=== PATIENT | female | born 1945 | race Caucasian/White ===

== ENCOUNTER 2018-05-28 20:46 | Inpatient (IN) | payer OTHER, MEDICARE ==
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
[2018-05-28] MEDS ORDERED: IOPAMIDOL (ISOVUE-300) 100 ML BTL ONE (21:00)
[2018-05-28] MEDS ORDERED: HYDROmorphONE/DILAUDID 1 MG/ML INJ ONE (21:41)
[2018-05-28] MEDS ORDERED: HYDROmorphONE/DILAUDID 2 MG/ML INJ IVP ONE (21:43)
[2018-05-28] MEDS ORDERED: BUPIVACAINE 0.25% 270 ML in PUMP SET 1 EA NB SCH (23:30)
[2018-05-28] MEDS ORDERED: BUPIVACAINE 0.25% 10 ML SDV NB ONE (23:30)
[2018-05-28] MEDS ORDERED: ACETAMINOPHEN 325 MG TAB PO PRN (23:32)
[2018-05-28] MEDS ORDERED: ONDANSETRON 4 MG/2 ML VIAL IVP PRN (23:32)
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
[2018-05-28] MEDS ORDERED: fentaNYL 100 MCG/2 ML INJ ONE (23:41)
[2018-05-28] MEDS ORDERED: PHENYLEPHRINE 10 MG/ML SDV ONE (23:58)
[2018-05-29] MEDS ORDERED: PHENYLEPHRINE HCL 100 MCG/ML SYR ONE ×3 (00:02→00:10)
[2018-05-29] MEDS ORDERED: ePHEDrine SULFATE 25 MG/5 ML SYR ONE (00:02)
[2018-05-29] MEDS ORDERED: fentaNYL 100 MCG/2 ML INJ EP ONE (00:05)
[2018-05-29] MEDS ORDERED: NALOXONE HCL 0.4 MG/ML INJ IVP PRN (00:30)
[2018-05-29] MEDS ORDERED: diphenhydrAMINE 25 MG CAP PO PRN (00:30)
[2018-05-29] MEDS ORDERED: METOCLOPRAMIDE 10 MG/2 ML VIAL IVP PRN (00:30)
[2018-05-29] MEDS ORDERED: ONDANSETRON 4 MG/2 ML VIAL IVP PRN (00:30)
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
--- NOTE | 2018-05-29 00:45 | POSTANESTH ---
Post Anesthetic Evaluation Cardiovascular Status: Normal, Stable Respiratory Status: Similar to Pre-op Cond. Level of Consciousness/Mental Status: Can Participate in Eval Pain Control: Adequate, Prn Tx Ordered (Pain with deep breath is 1/10 (was 5/10) . She appears much more comfortable.) Nausea/Vomiting Control: Adequate, Prn Tx Ordered Complications Possibly Related to Anesthesia: None Noted Notes: Continue PCEA with Bupivacaine and hydromorphone.
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
--- NOTE | 2018-05-29 08:24 | PDPAINCON ---
Pain Management Consultation Patient referred by : Peter - Subjective Pain at rest (/10): 2 Pain with activity (/10): 4 Pain is: under control Side effects include: itchiness (in abdominal area.) Activity: unable to ambulate (not out of bed yet this am.) - Objective Site: thoracic (T7-8) Continuous infusion: bupivicaine Continuous rate (ml/hr): 5 Bolus (ml): 3 Lockout interval (mins): 20 Catheter site: clean, dry, intact Sensory and motor exam: consistent with block Vital signs: stable - Assessment/Plan Assessment/Plan: other (Reviewed PCEA use with patient, and had patient push button once. Good pain control, continue current management.)
[2018-05-29] MEDS ORDERED: PNEUMOC 13-VAL CONJ-DIP CRM/PF 0.5 ML SYR (PREVNAR 13) IM ONE (08:46)
[2018-05-29] MEDS ORDERED: HYDROmorphONE/DILAUDID 1 MG/ML INJ IVP PRN (09:00)
[2018-05-29] MEDS ORDERED: HYDROCODONE/APAP 5/325 TAB PO PRN (09:00)
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
[2018-05-29] MEDS: ENOXAPARIN 40 MG/0.4 ML SYR SC SCH (10:32)
[2018-05-29] MEDS: GABAPENTIN 100 MG CAP PO SCH ×2 (10:33→17:22)
[2018-05-29] MEDS: DC NARCS MISC SCH (10:46)
[2018-05-29] MEDS: REGARDING ANTICOAG MISC SCH (10:47)
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
[2018-05-29] MEDS: AMANTADINE HCL 100 MG CAP PO SCH (12:30)
[2018-05-29] MEDS: CARBIDOPA/LEVODOPA 25 MG/100 MG TAB PO SCH (12:30)
[2018-05-29] MEDS: PRAMIPEXOLE 0.25 MG TAB PO SCH (12:31)
[2018-05-29] MEDS: Rasagiline Mesylate 1 MG PO SCH (12:42)
[2018-05-29] MEDS: TAMSULOSIN HCL 0.4 MG CAP PO SCH (12:50)
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
[2018-05-29] MEDS: HYDROmorph 10MCG/ML&BUP 0.0625% in 100ML NS EP SCH (15:22)
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
[2018-05-30] MEDS: HYDROmorph 10MCG/ML&BUP 0.0625% in 100ML NS EP SCH (05:05)
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
--- NOTE | 2018-05-30 10:36 | TRAUMAPN ---
Trauma Progress Note Assessment/Plan: - Problem/Surgery Performed (1) Parkinson disease (2) Tobacco dependence Assessment/Plan: Declined a nicotine patch (3) Compression fracture of L1 vertebra Assessment/Plan: Difficult to assess for pain as pain is well controlled with epidural Good lower extremity strength May repeat imaging tomorrow (4) Pneumothorax Assessment/Plan: subclinical right pneumothorax (5) Ribs, multiple fractures Assessment/Plan: Better breathing today Wean O2 Received pneumococcal and influenza vaccinations 05/29 encourage IS Proph Will start VTE prophylaxis with SCD, LMWH Wear brace when up PT Subjective: Pain controlled today Objective: Vital Signs Temp Pulse Resp BP Pulse Ox 36.9 C 65 17 104/48 L 95 05/30/18 04:00 05/30/18 04:00 05/30/18 04:00 05/30/18 04:00 05/30/18 04:00 05/29/18 05/30/18 05/31/18 05:59 05:59 05:59 Intake Total 800 625 Output Total 450 150 Balance 800 175 -150 - C-Spine Clearance Cervical Spine Cleared: Yes Provider who Cleared Cervical Spine: Dr. Green Physical Exam - Physical Exam General Appearance: WD/WN, alert, no apparent distress EENT: PERRL/EOMI, No scleral icterus (R), No scleral icterus (L), No hearing deficit Respiratory: chest non-tender, lungs clear, other (decreased at bases) Cardiac/Chest: regular rate, rhythm, No edema Abdomen: normal bowel sounds, non-tender, soft Back: Other (epidural in place) Skin: normal color, warm/dry Extremities: other (good strength)
[2018-05-30] MEDS: TAMSULOSIN HCL 0.4 MG CAP PO SCH (12:27)
[2018-05-30] MEDS: ENOXAPARIN 40 MG/0.4 ML SYR SC SCH (12:27)
[2018-05-30] MEDS: Rasagiline Mesylate 1 MG PO SCH (12:27)
[2018-05-30] MEDS: REGARDING ANTICOAG MISC SCH (12:28)
[2018-05-30] MEDS: PRAMIPEXOLE 0.25 MG TAB PO SCH (12:28)
[2018-05-30] MEDS: CARBIDOPA/LEVODOPA 25 MG/100 MG TAB PO SCH (12:28)
[2018-05-30] MEDS: DC NARCS MISC SCH (12:29)
[2018-05-30] MEDS: AMANTADINE HCL 100 MG CAP PO SCH (12:29)
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
--- NOTE | 2018-05-30 19:23 | PDPAINCON ---
Pain Management Consultation Patient referred by : Peter - Subjective Pain at rest (/10): 0 Pain with activity (/10): 0 Pain is: no pain at all Side effects include: drowsy (Will c) Activity: out of bed with assistance - Objective Technique: continuous epidural Site: thoracic Continuous infusion: bupivicaine Catheter site: clean, dry, intact Sensory and motor exam: consistent with block Vital signs: stable - Assessment/Plan Assessment/Plan: pain well-controlled, continue current mgmt, change infusion rate (Excellent analgesia but drowsy. Will decrease infusion to 4 ml/hr in am.)
[2018-05-31] MEDS: HYDROmorph 10MCG/ML&BUP 0.0625% in 100ML NS EP SCH ×2 (03:29→22:43)
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
[2018-05-31] MEDS ORDERED: LACTULOSE 20 GM/30 ML UDCUP PO PRN (08:22)
[2018-05-31] MEDS ORDERED: POLYETHYLENE GLYCOL 3350 17 GM PKT PO PRN (08:22)
[2018-05-31] MEDS ORDERED: MAGNESIUM HYDROXIDE 30 ML UDCUP PO PRN (08:22)
[2018-05-31] MEDS ORDERED: BISACODYL 10 MG SUPP PR PRN (08:22)
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
[2018-05-31] MEDS: REGARDING ANTICOAG MISC SCH (09:52)
[2018-05-31] MEDS: DC NARCS MISC SCH (09:52)
[2018-05-31] MEDS: ENOXAPARIN 40 MG/0.4 ML SYR SC SCH (09:53)
--- NOTE | 2018-05-31 10:50 | PDPAINCON ---
Pain Management Consultation Patient referred by : Peter - Subjective Pain at rest (/10): 0 Pain with activity (/10): 2 Pain is: under control Side effects include: drowsy Activity: able to ambulate, out of bed with assistance - Objective Technique: continuous epidural Site: thoracic Continuous infusion: bupivicaine Catheter site: clean, dry, intact Sensory and motor exam: consistent with block Vital signs: stable - Assessment/Plan Assessment/Plan: pain well-controlled, continue current mgmt
[2018-05-31] MEDS: PRAMIPEXOLE 0.25 MG TAB PO SCH (10:58)
[2018-05-31] MEDS: SENNOSIDES/DOCUSATE SODIUM TAB PO SCH ×2 (10:58→21:32)
[2018-05-31] MEDS: CARBIDOPA/LEVODOPA 25 MG/100 MG TAB PO SCH (10:58)
[2018-05-31] MEDS: Rasagiline Mesylate 1 MG PO SCH (10:58)
[2018-05-31] MEDS: AMANTADINE HCL 100 MG CAP PO SCH (10:58)
[2018-05-31] MEDS: TAMSULOSIN HCL 0.4 MG CAP PO SCH (13:21)
[2018-06-01] MEDS: DC NARCS MISC SCH (09:33)
[2018-06-01] MEDS: REGARDING ANTICOAG MISC SCH (09:33)
[2018-06-01] MEDS: ENOXAPARIN 40 MG/0.4 ML SYR SC SCH (09:33)
[2018-06-01] MEDS: Rasagiline Mesylate 1 MG PO SCH (09:36)
[2018-06-01] MEDS: PRAMIPEXOLE 0.25 MG TAB PO SCH (09:36)
[2018-06-01] MEDS: CARBIDOPA/LEVODOPA 25 MG/100 MG TAB PO SCH (09:36)
[2018-06-01] MEDS: AMANTADINE HCL 100 MG CAP PO SCH (09:36)
[2018-06-01] MEDS: TAMSULOSIN HCL 0.4 MG CAP PO SCH (09:37)
[2018-06-01] MEDS: SENNOSIDES/DOCUSATE SODIUM TAB PO SCH ×2 (09:37→21:43)
--- NOTE | 2018-06-01 10:36 | PDPAINCON ---
Pain Management Consultation Patient referred by Dr.: Green - Subjective Pain is: no pain at all Side effects include: No drowsy (per family, patient is at baseline mental status w/ h/o parkinsons. not somnolent.) - Objective Technique: continuous epidural (bupivacaine + hydromorphone) Sensory and motor exam: consistent with block Vital signs: stable - Assessment/Plan Assessment/Plan: pain well-controlled, continue current mgmt Additional comments: Thoracic epidural running bupi+dilaudid at 4ml/hr with excellent analgesia 0/10 pain. Previous reports of somnolence not substantiated by family report - patient has h/o parkinsons and appears to be mentating at her baseline. Continue current management.
--- NOTE | 2018-06-01 11:13 | TRAUMAPN ---
Trauma Progress Note Assessment/Plan: - Problem/Surgery Performed (1) Parkinson disease DBS + meds. At baseline (2) Tobacco dependence Assessment/Plan: Declined a nicotine patch (3) Compression fracture of L1 vertebra Not acute from bone scan (4) Pneumothorax Assessment/Plan: subclinical right pneumothorax (5) Ribs, multiple fractures Assessment/Plan: Doing well Work on removing epidural and transition to po pain meds Received pneumococcal and influenza vaccinations 05/29 encourage IS Proph Will start VTE prophylaxis with SCD, LMWH Subjective: Pain controlled Objective: Vital Signs Temp Pulse Resp BP Pulse Ox 36.4 C 76 16 108/57 L 90 L 06/01/18 08:00 06/01/18 08:00 06/01/18 08:00 06/01/18 08:00 06/01/18 08:00 05/31/18 06/01/18 06/02/18 05:59 05:59 05:59 Intake Total 300 Output Total 150 1 Balance -150 299 - C-Spine Clearance Cervical Spine Cleared: Yes Provider who Cleared Cervical Spine: Dr. Green Physical Exam - Physical Exam General Appearance: WD/WN, alert, no apparent distress EENT: PERRL/EOMI, normal ENT inspection, No scleral icterus (R), No scleral icterus (L), No hearing deficit Neck: non-tender, full range of motion Respiratory: chest non-tender, lungs clear Cardiac/Chest: regular rate, rhythm Abdomen: normal bowel sounds, non-tender, soft Neuro/Psych: other (tremor)
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
[2018-06-02 07:29] VITALS: BP 149/81
[2018-06-02] MEDS ORDERED: BISACODYL 10 MG SUPP PR ONE (07:53)
--- NOTE | 2018-06-02 08:10 | PDDCSUM ---
Discharge Summary Discharge Summary: Discharge Summary Dictated #[id number] Herberth Gray MD, FACS
[2018-06-02] MEDS: PRAMIPEXOLE 0.25 MG TAB PO SCH (08:29)
[2018-06-02] MEDS: CARBIDOPA/LEVODOPA 25 MG/100 MG TAB PO SCH (08:29)
[2018-06-02] MEDS: AMANTADINE HCL 100 MG CAP PO SCH (08:29)
[2018-06-02] MEDS: SENNOSIDES/DOCUSATE SODIUM TAB PO SCH (08:29)
[2018-06-02] MEDS: TAMSULOSIN HCL 0.4 MG CAP PO SCH (08:29)
[2018-06-02] MEDS: Rasagiline Mesylate 1 MG PO SCH (08:30)
[2018-06-02] MEDS: ENOXAPARIN 40 MG/0.4 ML SYR SC SCH (08:30)
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
--- NOTE | 2018-06-02 16:57 | ASMTLACE ---
LACE Length of stay for Answers: 4-6 days current admission Acuity / Level of Answers: Yes Care: Did the patient have an inpatient admission? Comorbidities - select Answers: Other Notes: Parkinsons all that apply # of Emergency department Answers: 1-2 visits in the last 6 months Score: 9 Date Signed: 06/02/2018 04:56 PM Electronically Signed By:DEO Catalan
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
== END 2018-06-02 13:01 | disposition home or self-care (01) | DRG 184 ==
LOC: EDUNIT# → OBSVTOIN 23:38 → F2N 05-29 03:57 → F3N 05-29 15:40
PROVIDERS: ADMIT Surgery; ATTEND Surgery
PROC: 3E0S3BZ Introduction of Anesthetic Agent into Epidural Space, Percutaneous Approach (ICD-10-PCS; principal; 2018-05-29)
DX: S22.41XA Multiple fractures of ribs, right side, initial encounter for closed fracture (principal); S27.0XXA Traumatic pneumothorax, initial encounter; V43.62XA Car passenger injured in collision with other type car in traffic accident, initial encounter; Y92.410 Unspecified street and highway as the place of occurrence of the external cause; G31.83 Neurocognitive disorder with Lewy bodies; F02.80 Dementia in other diseases classified elsewhere, unspecified severity, without behavioral disturbance, psychotic disturbance, mood disturbance, and anxiety; Z96.89 Presence of other specified functional implants; F17.210 Nicotine dependence, cigarettes, uncomplicated; Z91.81 History of falling; Z23 Encounter for immunization
CPT/HCPCS: 82435-PO; 82565-PO; 82947-PO; 84132-PO; 84295-PO; 84520-PO; 85014-PO; 92507-GN; 92523-GN; 92610-GN; 96374; 97116-GP; 97162-GP; 97166-GO; 97530-GP; 97535-GO; A9503; G0008; G0009; G8978-GP-CK; G8979-GP-CJ; G8987-GO-CJ; G8987-GO-CL; G8988-GO-CJ; G8996-GN-CI; G8997-GN-CH; J1170; J1650; J2370; J3010; Q9967